=== PATIENT | female | born 1985 | race Caucasian/White ===

== ENCOUNTER 2017-02-22 18:34 | Emergency (ER) | payer SELFPAY ==
[2017-02-22] MEDS ORDERED: PRENATAL PLUS I1 TAB PO (20:18)
== END 2017-02-22 21:12 | disposition short-term general hospital (02) ==
LOC: ER 18:34 → RAD 18:34 → ER 21:12
DX: N39.0 Urinary tract infection, site not specified (principal)
CPT/HCPCS: J1170; J1885